=== PATIENT | female | born 1990 | race Caucasian/White ===

== ENCOUNTER 2018-10-23 07:29 | Outpatient (CLI) | payer BC ==
--- NOTE | 2018-10-23 08:23 | CT ---
CT abdomen and pelvis with IV and oral contrast HISTORY: Lower abdomen pain. FINDINGS: The lung bases are clear. The liver, spleen, kidneys, adrenal glands, and pancreas have a n ormal CT appearance. No enlarged lymph nodes or free fluid. Contraceptive device within the endometrial cavity of the uterus feminine hygiene device at the vagina. Appendix not inflamed. IMPRESSION: No significant abnormalities are demonstrated.
== END 2018-10-23 07:30 | disposition home or self-care (01) ==
LOC: BICCT 07:29
PROVIDERS: ATTEND Nurse Practitioner Family
DX: R10.30 Lower abdominal pain, unspecified (principal)
CPT/HCPCS: 74177